=== PATIENT | male | born 1945 | race Caucasian/White ===

== ENCOUNTER → 2017-03-02 | Day surgery (SDC) | payer MEDICARE ==
[~2017-03-02] VITALS: Ht 177.8 cm; Wt 79.5 kg
[~2017-03-02] MED LIST: ACET500T3 PO; AMLO5 PO; AMPICILLIN-SULBACTAM INJ 3 GM VIAL ONE; ASPI81CH CHEW; DIVA250ER PO; FISHCAP4 PO; INSU1INJ14 SQ; LACTATED RINGER'S 1000 ML INJ 1,000 ML IV ONE; LACTATED RINGER'S 1000 ML INJ 1,000 ML ONE; LEVEMIR SQ; LISI-515 PO; NOVOLOGP2 SQ; ONDANSETRON HCL 4 MG/2 ML VIAL IV PUSH ONE; OXYMETAZOLINE HCL 0.05% 15 ML NASAL SPRAY ONE; PROPOFOL 200 MG/20 ML AMP IV ONE; SODIUM CHLORIDE 0.9% INJ 100 ML ONE
[2017-03-02 06:36] VITALS: BP 168/77; PULSE 61; RESP 16; TEMP 97.8; O2SAT 96
[2017-03-02 08:08] VITALS: PULSE 56
[2017-03-02 08:45] VITALS: PULSE 52; TEMP 97.8
[2017-03-02 10:00] VITALS: BP 141/65; PULSE 52; RESP 14; O2SAT 97
--- NOTE | 2017-03-02 12:50 | MP ---
cc: BRAVO CADE M.D. DATE OF SURGERY: 03/02/[address] Bravo Cade PREOPERATIVE DIAGNOSIS 1. Hoarseness. 2. Lesion of right true vocal cord. POSTOPERATIVE DIAGNOSIS 1. Hoarseness. 2. Lesion of right true vocal cord. OPERATION PERFORMED Microlaryngoscopy with biopsy and excision of lesion right true vocal cord. INDICATIONS The indications are documented in the history and physical. DESCRIPTION OF OPERATION The patient was taken to OR #2 and placed in the supine position. Following induction of general anesthesia and intubation using a #6 endotracheal tube, a shoulder roll, a Irineo head drape and a dental guard were put in place, and using the Jako laryngoscope the hypopharynx and larynx were brought into view. The patient was then placed in suspension laryngoscopy and the lesion on the right cord was identified. The microscope was then brought into the field and the endolarynx was examined. The lesion on the right cord was easily identifiable. It was biopsied in three locations and then removed in toto with endolaryngeal scissors. The defect of the right vocal cord was then treated with the microlaryngeal Coblator to remove any remnants of the lesion and then with the bipolar cautery to control bleeding. The scope was then removed and the procedure was terminated. The patient was reversed from anesthesia and taken to Recovery in good condition. There were no complications. Blood loss was 10 mL. MD CHEPE Gomez/MACEY /10:42 AM /12:46 PM
--- NOTE | 2017-03-03 10:18 | EKG ---
Date Performed: 03/02/2017 Time Performed: 07:13:12 PTAGE: 71 years EKG: Sinus bradycardia. incomplete right bundle branch block Abnormal ECG NO PREVIOUS TRACING DOCTOR: Haile Mejia Interpretating Date/Time 03/03/2017 10:17:31
== END | disposition home or self-care (01) ==
LOC: PHSDC 06:11
PROVIDERS: ATTEND Otolaryngology
DX: K13.4 Granuloma and granuloma-like lesions of oral mucosa (principal); E11.9 Type 2 diabetes mellitus without complications; I10 Essential (primary) hypertension; Z01.810 Encounter for preprocedural cardiovascular examination
CPT/HCPCS: 00320; 31541; 88305; 93005; J0295; J2405; J3010; J7120

== ENCOUNTER → 2017-06-15 | Day surgery (SDC) | payer MEDICARE ==
[~2017-06-15] VITALS: Ht 177.8 cm; Wt 75.0 kg
[~2017-06-15] MED LIST changes: +CHLORHEXIDINE GLUCONATE 2 % 1 PACK (2 CLOTHS) TOPICAL PRN; -FISHCAP4 PO; +INSULIN HUMAN REGULAR 1,000 UNITS/10 ML VIAL SQ PRN; +KETOROLAC TROMETHAMINE 60 MG/2 ML (IM) VIAL IM ONE; -LACTATED RINGER'S 1000 ML INJ 1,000 ML IV ONE; -LACTATED RINGER'S 1000 ML INJ 1,000 ML ONE; +LACTATED RINGER'S 1000 ML IV PRN; +METOPROLOL TARTRATE 25 MG TAB PO PRN; -OXYMETAZOLINE HCL 0.05% 15 ML NASAL SPRAY ONE; +POVIDONE IODINE 5% (ANTISEPSIS KIT) 4 APPLICATIONS EACH NARE PRN; +SODIUM CHLORID 0.9% 500 ML IV PRN; +SUGAMMADEX SODIUM 200 MG/2 ML VIAL IV PUSH ONE; +TYLE325T PO; +ePHEDrine/NS 25 MG/5 ML SYR IV ONE; +fentaNYL CITRATE 250 MCG/5 ML AMP ONE
[2017-06-15 06:25] VITALS: BP 172/70; PULSE 60; RESP 16; TEMP 97.5; O2SAT 98
[2017-06-15 09:50] VITALS: BP 146/61; PULSE 67; RESP 16; TEMP 98; O2SAT 99
--- NOTE | 2017-07-15 14:55 | MP ---
cc: BRAVO CADE M.D. DATE OF SURGERY: June 15, [address] Bravo Cade. PREOPERATIVE DIAGNOSIS Right vocal cord granuloma. POSTOPERATIVE DIAGNOSIS Right vocal cord granuloma. OPERATION PERFORMED Microlaryngoscopy with CO2 laser excision of vocal cord lesion. INDICATIONS Documented in the history and physical. DESCRIPTION OF OPERATION The patient was taken to OR #2 and placed in the supine position. Following induction of general anesthesia and intubation a shoulder roll and a Irineo head drape and a dental guard were put in place. Then using a Dedo laryngoscope, hypopharynx and larynx were brought into view. The lesion at the right posterior vocal cord was identified. The patient was then placed in suspension laryngoscopy. The lesion was removed using the handheld CO2 laser probe at 5 han. This continued until there was no further evidence of inflammatory or granulation tissue involving the right vocal cord. The laser and the laryngoscope were then removed and the procedure was terminated. The patient was reversed from anesthesia and taken to recovery in good condition. There were no complications. Blood loss was less than 5 mL. MD CHEPE Gomez/DAYNEL /8:36 AM /3:21 PM
== END | disposition home or self-care (01) ==
LOC: PHSDC 06:04
PROVIDERS: ATTEND Otolaryngology
DX: J38.3 Other diseases of vocal cords (principal); I10 Essential (primary) hypertension; E11.9 Type 2 diabetes mellitus without complications; K21.9 Gastro-esophageal reflux disease without esophagitis; M54.2 Cervicalgia; M54.9 Dorsalgia, unspecified; Z79.82 Long term (current) use of aspirin; Z79.4 Long term (current) use of insulin; Z79.899 Other long term (current) drug therapy
CPT/HCPCS: 00320; 31541; 82948; J0295; J1885; J2405; J3010; J7120